=== PATIENT | male | born 1995 | race Caucasian/White ===

== ENCOUNTER → 2016-05-19 | Outpatient (CLI) | payer OTHER ==
[~2016-05-19] VITALS: Ht 180.3 cm; Wt 112.9 kg
[2016-05-19 17:21] VITALS: BP 131/86; PULSE 102; Ht 180.3 cm; Wt 112.9 kg
== END | disposition home or self-care (01) ==
LOC: C.NEUR 15:39
PROVIDERS: ATTEND Internal Medicine Pulmonary Disease
DX: R53.83 Other fatigue (principal); E66.9 Obesity, unspecified; E03.9 Hypothyroidism, unspecified; E55.9 Vitamin D deficiency, unspecified